=== PATIENT | female | born 1990 | race American Indian/Alaskan Native ===

== ENCOUNTER 2019-06-03 22:25 | Emergency (ER) | payer MEDICAID ==
[2019-06-03] MEDS ORDERED: Sodium Chloride 0.9% 10 ML Syringe FLUSH PRN (22:35)
[2019-06-03] MEDS ORDERED: HYDROmorphone 1 MG/ML Syringe IVPUSH ONE (23:06)
[2019-06-03] MEDS ORDERED: Ondansetron 4 MG/2 ML SDV IV ONE (23:06)
[2019-06-03] MEDS ORDERED: Iopamidol 612 MG/ML 100 ML Bottle IVPUSH ONE (23:06)
[2019-06-03 23:16] LABS: ANION GAP 11.2; CHLORIDE,CL 105 mmol/L (101-111); SODIUM,NA 136 mmol/L (135-145)
--- NOTE | 2019-06-04 00:37 | EDM.PDOC ---
ED HPI GENERAL MEDICAL PROBLEM - General Chief Complaint: Abdominal Pain Stated Complaint: AMBULANCE Time Seen by Provider: 06/03/19 22:30 Source of Information: Reports: Patient, EMS, EMS Notes Reviewed, RN, RN Notes Reviewed History Limitations: Reports: No Limitations - History of Present Illness INITIAL COMMENTS - FREE TEXT/NARRATIVE: patient to ER per [facility] with complaint of right upper quadrant, right flank, back pain which again abruptly this evening about 7:00 and progressively got worse. Patient states upon arrival that her pain is a 10/10. Patient was given fentanyl by EMS. Patient states she no longer has her appendix, but does still have her gallbladder. Patient states while last bowel movement was about 6 PM today, and was normal for her. Patient states she has not had menses in 5 months , but states she has uterus problems, and denies chance of . Onset: Today, Sudden Duration: Constant, Getting Worse Location: Reports: Abdomen, Back Quality: Reports: Sharp, Stabbing Severity: Severe Improves with: Reports: None Worsens with: Reports: None Associated Symptoms: Reports: Nausea/Vomiting Upper Epigastric Pain Score (Numeric/FACES): 8 - Related Data Allergies Allergy/AdvReac Type Severity Reaction Status Date / Time No Known Allergies Allergy Verified 06/03/19 22:58 Past Medical History HEENT History: Reports: Impaired Vision Cardiovascular History: Reports: None Respiratory History: Reports: Asthma Gastrointestinal History: Reports: None Genitourinary History: Reports: None 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: Musculoskeletal History: Reports: Fracture Other Musculoskeletal History: toe Neurological History: Reports: None Psychiatric History: Reports: Depression Endocrine/Metabolic History: Reports: None Hematologic History: Reports: None Oncologic (Cancer) History: Reports: None Dermatologic History: Reports: None - Past Surgical History Head Surgeries/Procedures: Reports: None HEENT Surgical History: Reports: None Cardiovascular Surgical History: Reports: None Respiratory Surgical History: Reports: None GI Surgical History: Reports: None Female Surgical History: Reports: None Oncologic Surgical History: Reports: None Social & Family History - Family History Family Medical History: Noncontributory - Tobacco Use Smoking Status *Q: Never Smoker Second Hand Smoke Exposure: Yes - Caffeine Use Caffeine Use: Reports: Coffee, Soda, Tea - Recreational Drug Use Recreational Drug Use: No ED ROS GENERAL - Review of Systems Review Of Systems: Comprehensive ROS is negative, except as noted in HPI. ED EXAM, GI/ABD - Physical Exam Exam: See Below Exam Limited By: No Limitations General Appearance: Alert, WD/WN, Moderate Distress Eyes: Bilateral: Normal Appearance, EOMI Ears: Normal External Exam, Hearing Grossly Normal Nose: Normal Inspection Throat/Mouth: Normal Inspection, Normal Voice, No Airway Compromise Head: Atraumatic, Normocephalic Neck: Normal Inspection, Supple, Non-Tender, Full Range of Motion Respiratory/Chest: No Respiratory Distress, Lungs Clear, Normal Breath Sounds, No Accessory Muscle Use, Chest Non-Tender Cardiovascular: Normal Peripheral Pulses, Regular Rate, Rhythm, No Edema, No Gallop, No JVD, No Murmur, No Rub GI/Abdominal Exam: Normal Bowel Sounds, Soft, No Organomegaly, No Distention, No Abnormal Bruit, No Mass, Pelvis Stable, Tender (upper quadrant) (Female) Exam: Deferred Rectal (Female) Exam: Deferred Back Exam: Normal Inspection, Full Range of Motion. No: CVA Tenderness (L), CVA Tenderness (R) Extremities: Normal Inspection, Normal Range of Motion, Non-Tender, Normal Capillary Refill, No Pedal Edema Neurological: Alert, Oriented, CN II-XII Intact, Normal Cognition, Normal Gait, Normal Reflexes, No Motor/Sensory Deficits Psychiatric: Normal Affect, Normal Mood Skin Exam: Warm, Dry, Intact, Normal Color, No Rash Lymphatic: No Adenopathy Course - Vital Signs Last Recorded V/S: Last Vital Signs Temp 96 F 06/03/19 22:27 Pulse 77 06/03/19 22:27 Resp 18 06/03/19 22:27 BP 104/84 06/03/19 22:27 Pulse Ox 100 06/03/19 22:27 - Orders/Labs/Meds Orders: Active Orders 24 hr Category Date Time Status EKG Documentation Completion [RC] STAT Care 06/03/19 22:35 Active Peripheral IV Care [RC] . DIRECTED Care 06/03/19 22:35 Active Abdomen Pelvis w Cont [CT] Urgent Exams 06/03/19 23:07 Taken CRP [C-REACTIVE PROTEIN] [CHEM] Stat Lab 06/04/19 01:55 Received SEDIMENTATION RATE MANUAL [HEME] Stat Lab 06/04/19 01:55 Received Sodium Chloride 0.9% [Normal Saline] 1,000 ml Med 06/04/19 01:41 Active IV .BOLUS Sodium Chloride 0.9% [Saline Flush] Med 06/03/19 22:35 Active 10 ml FLUSH ASDIRECTED PRN Peripheral IV Insertion Adult [OM.PC] Stat Oth 06/03/19 22:35 Ordered Medication Orders Sodium Chloride (Normal Saline) 1,000 mls @ 999 mls/hr IV .BOLUS ONE Stop: 06/04/19 02:41 Last Admin: 06/04/19 01:54 Dose: 999 mls/hr Sodium Chloride (Saline Flush) 10 ml FLUSH ASDIRECTED PRN PRN Reason: Keep Vein Open Last Admin: 06/03/19 23:14 Dose: 10 ml Labs: Laboratory Tests 06/03/19 06/03/19 06/03/19 Range/Units 22:42 22:42 22:52 WBC 15.6 H (5.0-10.0) 10^3/uL RBC 4.98 (4.2-5.4) 10^6/uL Hgb 13.2 (12.0-16.0) g/dL Hct 39.6 (37.0-47.0) % MCV 79.5 L (80-100) fL MCH 26.5 L (27.0-34.0) pg MCHC 33.3 (33.0-35.0) g/dL Plt Count 334 (150-450) 10^3/uL Neut % (Auto) 80.7 H (42.2-75.2) % Lymph % (Auto) 12.5 L (20.5-50.1) % [place] % (Auto) 5.7 (2-8) % Eos % (Auto) 0.8 L (1.0-3.0) % Baso % (Auto) 0.3 (0.0-1.0) % Sodium (135-145) mmol/L Potassium (3.6-5.0) mmol/L Chloride (101-111) mmol/L Carbon Dioxide (21.0-31.0) mmol/L Anion Gap BUN (7-18) mg/dL Creatinine (0.6-1.3) mg/dL Est Cr Clr Drug Dosing mL/min Estimated GFR (MDRD) BUN/Creatinine Ratio Glucose (74-105) mg/dL Calcium (8.4-10.2) mg/dl Total Bilirubin (0.2-1.0) mg/dL AST (10-42) IU/L ALT (10-60) IU/L Alkaline Phosphatase (42-121) IU/L Troponin I (0.00-0.02) ng/ml Total Protein (6.7-8.2) g/dl Albumin (3.2-5.5) g/dl Globulin Albumin/Globulin Ratio Amylase (28-100) U/L Lipase (22-51) U/L Urine Color Yellow (YELLOW) Urine Appearance Slightly cloudy (CLEAR) Urine pH 8.0 (5.0-9.0) Ur Specific [place] 1.025 (1.005-1.030) Urine Protein Negative (NEGATIVE) Urine Glucose (UA) Negative (NEGATIVE) Urine Ketones Negative (NEGATIVE) Urine Occult Blood Small H (NEGATIVE) Urine Nitrite Negative (NEGATIVE) Urine Bilirubin Negative (NEGATIVE) Urine Urobilinogen 0.2 (0.2-1.0) mg/dL Ur Leukocyte Esterase Negative (NEGATIVE) Urine RBC 5-10 H /HPF Urine WBC 0-5 (0-5/HPF) /HPF Ur Epithelial Cells Few (NOT SEEN) /HPF Amorphous Sediment Moderate H (NOT SEEN) /HPF Urine Bacteria Few (0-FEW/HPF) /HPF Urine Mucus Few H (NOT SEEN) /LPF Urine HCG, Qual Negative 06/03/19 06/03/19 06/04/19 Range/Units 22:52 22:52 01:55 WBC 13.9 H (5.0-10.0) 10^3/uL RBC 4.93 (4.2-5.4) 10^6/uL Hgb 13.2 (12.0-16.0) g/dL Hct 39.1 (37.0-47.0) % MCV 79.3 L (80-100) fL MCH 26.8 L (27.0-34.0) pg MCHC 33.8 (33.0-35.0) g/dL Plt Count 324 (150-450) 10^3/uL Neut % (Auto) 87.9 H (42.2-75.2) % Lymph % (Auto) 7.2 L (20.5-50.1) % [place] % (Auto) 4.7 (2-8) % Eos % (Auto) 0.1 L (1.0-3.0) % Baso % (Auto) 0.1 (0.0-1.0) % Sodium 136 (135-145) mmol/L Potassium 3.2 L (3.6-5.0) mmol/L Chloride 105 (101-111) mmol/L Carbon Dioxide 23.0 (21.0-31.0) mmol/L Anion Gap 11.2 BUN 7 (7-18) mg/dL Creatinine 0.6 (0.6-1.3) mg/dL Est Cr Clr Drug Dosing 118.39 mL/min Estimated GFR (MDRD) > 60 BUN/Creatinine Ratio 11.66 Glucose 134 H (74-105) mg/dL Calcium 8.6 (8.4-10.2) mg/dl Total Bilirubin 0.8 (0.2-1.0) mg/dL AST 131 H (10-42) IU/L ALT 64 H (10-60) IU/L Alkaline Phosphatase 78 (42-121) IU/L Troponin I < 0.02 (0.00-0.02) ng/ml Total Protein 7.8 (6.7-8.2) g/dl Albumin 4.0 (3.2-5.5) g/dl Globulin 3.8 Albumin/Globulin Ratio 1.05 Amylase 18 L (28-100) U/L Lipase 43 (22-51) U/L Urine Color (YELLOW) Urine Appearance (CLEAR) Urine pH (5.0-9.0) Ur Specific [place] (1.005-1.030) Urine Protein (NEGATIVE) Urine Glucose (UA) (NEGATIVE) Urine Ketones (NEGATIVE) Urine Occult Blood (NEGATIVE) Urine Nitrite (NEGATIVE) Urine Bilirubin (NEGATIVE) Urine Urobilinogen (0.2-1.0) mg/dL Ur Leukocyte Esterase (NEGATIVE) Urine RBC /HPF Urine WBC (0-5/HPF) /HPF Ur Epithelial Cells (NOT SEEN) /HPF Amorphous Sediment (NOT SEEN) /HPF Urine Bacteria (0-FEW/HPF) /HPF Urine Mucus (NOT SEEN) /LPF Urine HCG, Qual Meds: Medications Generic Name Dose Route Start Last Admin Trade Name Freq PRN Reason Stop Dose Admin Sodium Chloride 1,000 mls @ 999 mls/hr 06/04/19 01:41 06/04/19 01:54 Normal Saline IV 06/04/19 02:41 999 mls/hr .BOLUS ONE Administration Sodium Chloride 10 ml 06/03/19 22:35 06/03/19 23:14 Saline Flush FLUSH 10 ml ASDIRECTED PRN Administration Keep Vein Open Discontinued Medications Generic Name Dose Route Start Last Admin Trade Name Freq PRN Reason Stop Dose Admin Diphenhydramine HCl 25 mg 06/04/19 01:39 06/04/19 01:55 Benadryl IVPUSH 06/04/19 01:40 25 mg ONETIME ONE Administration Famotidine 20 mg 06/04/19 01:40 06/04/19 01:55 Pepcid IVPUSH 06/04/19 01:41 20 mg ONETIME ONE Administration Hydromorphone HCl 1 mg 06/03/19 23:06 06/03/19 23:13 Dilaudid IVPUSH 06/03/19 23:07 1 mg ONETIME ONE Administration Iopamidol 100 ml 06/03/19 23:06 06/04/19 00:05 Isovue-300 (61%) IVPUSH 06/03/19 23:07 75 ml ONETIME ONE Administration Ketorolac Tromethamine 30 mg 06/04/19 01:32 Toradol IVPUSH 06/04/19 01:33 ONETIME ONE Methylprednisolone Sodium Succinate 125 mg 06/04/19 01:40 06/04/19 01:55 Solu-Medrol IVPUSH 06/04/19 01:41 125 mg ONETIME ONE Administration Ondansetron HCl 4 mg 06/03/19 23:06 06/03/19 23:13 Zofran IV 06/03/19 23:07 4 mg ONETIME ONE Administration - Radiology Interpretation Free Text/Narrative:: CT Abdomen/Pelvis with contrast: FINDINGS: Lungs: Mild bibasilar atelectasis. Liver: Nonspecific mild periportal edema in the right hepatic lobe. No focal hepatic lesions. Gallbladder and bile ducts: The gallbladder is distended. There are calcified gallstones layering dependently in the gallbladder lumen. No gross gallbladder wall thickening or pericholecystic fluid. Pancreas: Normal. No ductal dilation. Spleen: Normal. No splenomegaly. Adrenals: Normal. No mass. Kidneys and ureters: 7 mm nonobstructive stone in the right renal pelvis. No hydronephrosis or hydroureter. No ureteral stones. 6 mm right renal low attenuation lesion is too small to accurately characterize. Stomach and bowel: Unremarkable. No obstruction. No mucosal thickening. Appendix: The appendix is surgically absent. Intraperitoneal space: Unremarkable. No free air. No significant fluid collection. Vasculature: Unremarkable. No abdominal aortic aneurysm. Lymph nodes: Unremarkable. No enlarged lymph nodes. Bladder: The bladder is mostly decompressed. Reproductive: An intrauterine device is present. 3.1 x 1.8 cm right ovarian cystic lesion. No followup is necessary. Bones/joints: Unremarkable. No acute fracture. Soft tissues: Unremarkable. IMPRESSION: 1. Cholelithiasis. The gallbladder is otherwise unremarkable but assessment is somewhat limited by CT. Findings may be further assessed with right upper quadrant ultrasound if clinically indicated. 2. 7 mm nonobstructive stone in the right renal pelvis. No obstructive uropathy. COMMENT: Consistent with the [employer]'s Incidental Findings Committee Report (J Am Soumya Radiol 2010): Unless the patient's specific circumstances suggest otherwise , any liver lesion 0.5 cm or less, any cystic kidney lesion less than 1.0 cm, and/or any adrenal lesion 1.0 cm or less not otherwise characterized in this report as possessing suspicious or indeterminate imaging features is/are highly likely to be benign and do not require follow-up imaging or biopsy. Thank you for allowing us to participate in the care of your patient. Dictated and Authenticated by: Bala Perry MD 06/04/2019 12:32 AM Central Time ([place] & [place]) See rad report - Re-Assessments/Exams Free Text/Narrative Re-Assessment/Exam: 06/04/19 01:19 Discuss[address] pt case with Dr. Puentes with [facility]. He states he would like to see the patient in his clinic on Monday (06/04/2019). 06/04/19 01:51 patient developed swelling and erythema of the right eye while in the emergency department. Possible reaction to Dilaudid or contrast. Pepcid, Benadryl, Solu- Medrol all given. 06/04/19 02:09 Pt case discussed with Dr. Bowman who agreed to accept the patient for observation admission. Departure - Departure Time of Disposition: 02:14 Disposition: Refer to Observation Condition: Fair Clinical Impression: Kidney stone Cholelithiasis Qualifiers: Cholelithiasis location: gallbladder Cholecystitis presence: without cholecystitis Biliary obstruction: without biliary obstruction Qualified Code(s) : K80.20 - Calculus of gallbladder without cholecystitis without obstruction Angioedema Qualifiers: Encounter type: initial encounter Qualified Code(s): T78.3XXA - Angioneurotic edema, initial encounter - Discharge Information *PRESCRIPTION DRUG MONITORING PROGRAM REVIEWED*: No *COPY OF PRESCRIPTION DRUG MONITORING REPORT IN PATIENT ANDER: No Forms: ED Department Discharge Sepsis Event Note - Evaluation Sepsis Screening Result: No Definite Risk - Focused Exam Vital Signs: Vital Signs Temp Pulse Resp BP Pulse Ox 06/03/19 22:27 96 F 77 18 104/84 100 Date Exam was Performed: 06/04/19 Time Exam was Performed: 02:13 - My Orders Last 24 Hours: My Active Orders 06/03/19 22:35 EKG Documentation Completion [RC] STAT Peripheral IV Care [RC] . DIRECTED Sodium Chloride 0.9% [Saline Flush] 10 ml FLUSH ASDIRECTED PRN Peripheral IV Insertion Adult [OM.PC] Stat 06/03/19 23:07 Abdomen Pelvis w Cont [CT] Urgent 06/04/19 01:41 Sodium Chloride 0.9% [Normal Saline] 1,000 ml IV .BOLUS 06/04/19 01:55 CRP [C-REACTIVE PROTEIN] [CHEM] Stat SEDIMENTATION RATE MANUAL [HEME] Stat - Assessment/Plan Last 24 Hours: My Active Orders 06/03/19 22:35 EKG Documentation Completion [RC] STAT Peripheral IV Care [RC] . DIRECTED Sodium Chloride 0.9% [Saline Flush] 10 ml FLUSH ASDIRECTED PRN Peripheral IV Insertion Adult [OM.PC] Stat 06/03/19 23:07 Abdomen Pelvis w Cont [CT] Urgent 06/04/19 01:41 Sodium Chloride 0.9% [Normal Saline] 1,000 ml IV .BOLUS 06/04/19 01:55 CRP [C-REACTIVE PROTEIN] [CHEM] Stat SEDIMENTATION RATE MANUAL [HEME] Stat
[2019-06-04] MEDS ORDERED: Ketorolac 30 MG/ML SDV IVPUSH ONE (01:32)
[2019-06-04] MEDS ORDERED: diphenhydrAMINE 50 MG/ML SDV IVPUSH ONE (01:39)
[2019-06-04] MEDS ORDERED: methylPREDNISolone Sodium Succinate 125 MG/2 ML SDV IVPUSH ONE (01:40)
[2019-06-04] MEDS ORDERED: Famotidine 20 MG/2 ML SDV IVPUSH ONE (01:40)
[2019-06-04] MEDS ORDERED: Sodium Chloride 0.9% 1,000 ML IV ONE ×2 (01:41→02:51)
== END 2019-06-04 10:00 | disposition home or self-care (01) ==
LOC: EDBD → DL.ED 22:25
DX: K80.20 Calculus of gallbladder without cholecystitis without obstruction (principal); N20.0 Calculus of kidney; T78.3XXA Angioneurotic edema, initial encounter; Z77.22 Contact with and (suspected) exposure to environmental tobacco smoke (acute) (chronic)
CPT/HCPCS: 36415; 74177; 80053; 81001; 81025; 82150; 83690; 84484; 85025; 85651; 86140; 93005; 96361; 96374; 96375; 99285; J1170; J1200; J2405; J2930; J3490; J7030; Q9967